=== PATIENT | male | born 1940 | race Caucasian/White ===

== ENCOUNTER → 2019-11-29 15:12 | Outpatient (CLI) | payer MEDICARE, BC, SELFPAY ==
--- NOTE | 2019-11-29 | DI.US.S_ITS ---
PROCEDURE: US ABDOMEN COMPLETE INDICATIONS: RIGHT UPPER QUADRANT PAIN TECHNIQUE: Real-time scanning was performed of the abdominal and retroperitoneal organs, with image documentation. COMPARISON: None. FINDINGS: Liver: Liver is diffusely increased in echogenicity. No focal hepatic abnormalities identified. Normal hepatic size. Gallbladder: Adenomyomatosis involving the gallbladder which otherwise appears normal. No gallbladder wall thickening. Biliary ducts: Intrahepatic bile ducts are non-dilated. Extrahepatic bile duct caliber measures 5.0 mm. Normal is 6-7 mm or less in diameter, or 10 mm or less post-cholecystectomy. Pancreas: Visualized portions of the pancreas are sonographically normal. Spleen: Spleen is normal in size and homogeneous in echotexture. Kidneys: Kidneys are normal in size and echotexture. Right kidney measures 13.5 cm long; left kidney measures 12.7 cm long. No hydronephrosis bilaterally. Bilateral renal cysts are present, 1 of which in along the right kidney is mildly septated measuring up to 2.2 cm. Bilateral nonobstructing renal calcifications present measuring up to 1 cm on the right and 5 mm on the left. Aorta: Proximal aorta measuring 3.0 cm in maximal diameter. Iliacs: Proximal common iliac arteries are normal in caliber at less than 2.5 cm. IVC: Intrahepatic inferior vena cava is patent. Miscellaneous: No free abdominal fluid. IMPRESSION: 1. Increased hepatic echogenicity noted possibly related to hepatic steatosis but other sources of hepatocellular disease cannot be excluded. Recommend clinical correlation. 2. Adenomyomatosis of the gallbladder. 3. Bilateral renal cysts, 1 of which on the right is mildly septated (E Bosniak 2 F) which requires follow-up ultrasound in 3 months. 4. Bilateral non-obstructing renal calcifications. 5. 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 Dictated by: Shravan Diamond [facility] Interpreted: Kody Santiago MD on 11/29/2019 at 16:38 Approved by: Kody Santiago M.D. on 11/29/2019 at 17:08
== END ==
PROVIDERS: Family Provider Family Medicine; PCP Family Medicine; Referring Provider Family Medicine; Visit Provider Family Medicine
DX: R10.11 Right upper quadrant pain (principal); K82.8 Other specified diseases of gallbladder; N28.1 Cyst of kidney, acquired; N20.0 Calculus of kidney; I71.4 Abdominal aortic aneurysm, without rupture
CPT/HCPCS: 76700

== ENCOUNTER → 2021-12-11 14:40 | Outpatient (CLI) | payer MEDICARE, BC, SELFPAY ==
--- NOTE | 2021-12-11 | DI.US.S_ITS ---
PROCEDURE: US CAROTID DOPPLER BI INDICATIONS: Atherosclerotic heart disease TECHNIQUE: Color and pulse Doppler interrogation was performed of both carotid systems, with image documentation and velocity measurements. COMPARISON: None. FINDINGS: Stenosis calculations are based on SRU (Society of Radi[employer] in Ultrasound) criteria. Right side: Brachial blood pressure: 153/91 mm Hg. Common carotid artery peak systolic velocity: 95 cm/sec. Internal carotid artery peak systolic velocity: 91 cm/sec. Internal carotid artery end diastolic velocity: 22 cm/sec. External carotid artery peak systolic velocity: 79 cm/sec. ICA/CCA peak systolic ratio: Less than 1. Velazquez scale imaging description: Mild atherosclerotic plaque. Percent internal carotid artery stenosis: Less than 50%. Vertebral artery: Flow direction is antegrade. Left side: Brachial blood pressure: 166/87 mm Hg. Common carotid artery peak systolic velocity: 112 cm/sec. Internal carotid artery peak systolic velocity: 61 cm/sec. Internal carotid artery end diastolic velocity: 19 cm/sec. External carotid artery peak systolic velocity: 80 cm/sec. ICA/CCA peak systolic ratio: Less than 1. Velazquez scale imaging description: Scattered atherosclerotic plaque Percent internal carotid artery stenosis: Less than 50%. Vertebral artery: Not well visualized. IMPRESSION: 1. Mild atherosclerotic plaque with less than 50% stenosis of the internal carotid arteries bilaterally. 2. Left vertebral artery is not well seen. Dictated by: Kermit Vigil M.D. on 12/11/2021 at 16:44 Approved by: Kermit Vigil M.D. on 12/11/2021 at 16:46
--- NOTE | 2021-12-11 15:30 | DI.US.S_ITS ---
Reason For Study: Cardiomyopathy History: Summary Statements Sinus bradycardia with heart rate 52-57 bpm with somewhat wide QRS complexes. Normal LV size and mildly increased wall thickness. There is dyssynchronous contraction which is most likely due to conduction system abnormality. Otherwise there is normal wall motion; normal left ventricular systolic function. Ejection fraction is estimated at 50-55%. Stage I diastolic dysfunction. Mild left atrial enlargement. Otherwise normal chamber sizes. No significant valvular abnormalities. Compared to prior study at [facility] in [place] performed in 07/2018, septal dyssynchrony is newly described. QRS complex widening is newly described. Otherwise no changes have occurred. Procedure: A two-dimensional transthoracic echocardiogram with color flow and Doppler was performed. The study quality was technically adequate. There is no prior echocardiogram noted for this patient. Left Ventricle: The left ventricle is normal in size. There is mild concentric left ventricular hypertrophy. The ejection fraction is estimated to be 50-55%. Left ventricular systolic function is low normal. Diastolic parameters suggest a relaxation abnormality of the left ventricle, consistent with probable normal filling pressures. Right Ventricle: The right ventricle is normal in size and function. Atria: The left atrium is mildly dilated. Right atrial size is normal. The interatrial septum grossly appears intact with no obvious evidence for an atrial septal defect. Mitral Valve: The mitral valve is normal in structure and function. There is trace mitral regurgitation. Aortic Valve: There is mild aortic valve sclerosis. No aortic regurgitation is present. Tricuspid Valve: The tricuspid valve is normal in structure and function. There is a trace or physiologic amount of tricuspid regurgitation. The right ventricular systolic pressure is estimated to be at least 21 mmHg based on an estimated right atrial pressure of 3 mm Hg. Pulmonic Valve: The pulmonic valve is not well seen, but is grossly normal. There is no pulmonic valvular regurgitation. Great Vessels: The aortic root is normal size. The dimensions of the ascending aorta are normal. The IVC is of normal diameter and collapses greater than 50% with a sniff. This suggests a low right atrial pressure of 3 mm Hg. Pericardium/ Pleura: There is no pericardial effusion. There is no pleural effusion. 2D and M-Mode Measurements and Calculations LVIDd: 5.0 cm LVOT diam: 2.26 cm LVIDs: 3.3 cm Ao root diam: 3.2 cm IVSd: 1.27 cm asc Aorta Diam: 3.4 cm LVPWd: 1.21 cm LV marie. diameter/BSA (cm/m^2): 2.6 LV sys. diameter/BSA (cm/m^2): 1.73 TAPSE: 2.08 cm LA A4 area: 22.5 cm?? RA area: 12.9 cm?? LA A2 area: 20.5 cm?? RA long axis: 5.0 cm LA length (vol): 5.5 cm RA vol: 28.6 ml LA vol: 70.8 ml RA : 15.1 ml/m?? LA vol index: 37.4 ml/m?? Doppler Measurements and Calculations Ao V2 max: 167.8 cm/sec LVOT Max Bhavesh: 127.0 cm/sec Ao V2 mean: 101.9 cm/sec LV V1 max P.4 mmHg Ao V2 VTI: 29.5 cm LV V1 VTI: 26.9 cm Ao max P.3 mmHg Ao mean P.9 mmHg ARGELIA(I,D): 3.7 cm?? ARGELIA(V,D): 3.0 cm?? ARGELIA indexed to BSA (cm^2/m^2): 1.94 sev ratio: 0.91 MV E max bhavesh: 44.9 cm/sec MV dec time: 0.30 sec MV A max bhavesh: 77.9 cm/sec MV E/A: 0.58 Med Peak E' Bhavesh: 4.1 cm/sec Lat Peak E' Bhavesh: 6.6 cm/sec E/e' average: 8.9 TR max bhavesh: 214.8 cm/sec TR max P.4 mmHg Electronically signed by: Kay Elizalde M.D. 12/11/2021, 8: 05 PM
== END ==
PROVIDERS: Family Provider Family Medicine; PCP Family Medicine; Referring Provider Family Medicine; Visit Provider Family Medicine
DX: I25.10 Atherosclerotic heart disease of native coronary artery without angina pectoris (principal); I65.23 Occlusion and stenosis of bilateral carotid arteries
CPT/HCPCS: 93306; 93880